=== PATIENT | male | born 1970 | race Caucasian/White ===

== ENCOUNTER 2017-07-14 13:47 | Emergency (ER) | payer MEDICAID ==
[~2017-07-14] VITALS: Ht 175.3 cm; Wt 81.6 kg
[2017-07-14 14:01] VITALS: BP_SYST 126
[2017-07-14 15:21] VITALS: BP_SYST 125
== END 2017-07-14 15:21 | disposition home or self-care (01) ==
LOC: SED 13:47
DX: M25.562 Pain in left knee (principal); F31.9 Bipolar disorder, unspecified
CPT/HCPCS: 73564; 99284